=== PATIENT | female | born 1985 | race Caucasian/White ===

== ENCOUNTER → 2018-03-26 | Outpatient (CLI) | payer OTHER ==
--- NOTE | 2018-03-27 00:23 | MR ---
EXAMINATION TYPE: MR brain wo con DATE OF EXAM: 03/26/2018 COMPARISON: 04/11/1715 HISTORY: Facial Numbness and Dizzy Standard multiplanar, multisequence MRI departmental protocol Multiplanar, multisequence images of the brain were acquired. Diffusion weighted imaging was performe d. FINDINGS: The ventricles and sulci appear normal. There is no mass effect nor midline shift. There is no sign of intracranial hemorrhage. The calvarium is intact. There is some mucosal thickening in the ethmoid and frontal sinuses. Sella turcica appears normal. Brainstem appears normal. Corpus callosum appears normal. IMPRESSION: Negative MR scan of the brain. There is mild ethmoid and frontal sinusitis that is increased compared to old exam.
== END | disposition home or self-care (01) ==
LOC: RADMRIMAIN 18:34
PROVIDERS: ATTEND Family Medicine
DX: G80.9 Cerebral palsy, unspecified (principal); R20.2 Paresthesia of skin
CPT/HCPCS: 70551

== ENCOUNTER → 2018-04-10 | Outpatient (CLI) | payer OTHER ==
[2018-04-10 12:59] LABS: T4, Free (Free Thyroxine) 1.23 ng/dL (0.78-2.19)
[2018-04-10 18:53] LABS: Rheumatoid Factor 6 IU/mL (0-15)
[2018-04-10 18:59] LABS: Thyroid Peroxidase Antibodies <28.0 U/mL (0.0-60.0)
[2018-04-13 10:52] LABS: Lyme IgG/IgM 0.1 Index
== END | disposition home or self-care (01) ==
LOC: LABWHC1 12:10
PROVIDERS: ATTEND Otolaryngology
DX: R53.83 Other fatigue (principal); M19.90 Unspecified osteoarthritis, unspecified site
CPT/HCPCS: 36415; 84439; 84443; 86038; 86376; 86431; 86618

== ENCOUNTER → 2018-10-02 | Outpatient (CLI) | payer BC ==
[2018-10-02 17:09] LABS: Basophils # (A) 0.1 k/uL (0-0.2); Basophils % (A) 1 %; Eosinophils # (A) 0.5 k/uL (0-0.7); Eosinophils % (A) 6 %; HCT 41.6 % (34.0-46.0); HGB 13.6 gm/dL (11.4-16.0); Lymphocytes # (A) 1.8 k/uL (1.0-4.8); Lymphocytes % (A) 24 %; MCH 32.3 pg (25.0-35.0); MCHC 32.7 g/dL (31.0-37.0); Mean Platelet Volume 7.8; Monocytes # (A) 0.3 k/uL (0-1.0); Monocytes % (A) 4 %; Neutrophils # (A) 4.9 k/uL (1.3-7.7); Neutrophils % (A) 63 %; Platelet Count 294 k/uL (150-450); RDW 12.3 % (11.5-15.5); WBC 7.7 k/uL (3.8-10.6)
[2018-10-03 04:38] LABS: Albumin 4.7 g/dL (3.80-4.90); Albumin/Globulin Ratio 2.35 (1.20-2.10); Anion Gap 10.2 mmol/L (4.00-12.00); Carbon Dioxide 26.8 mmol/L (21.6-31.8); Potassium 3.9 mmol/L (3.5-5.5); Total Bilirubin 0.6 mg/dL (0.3-1.2); Total Protein 6.7 g/dL (6.2-8.2)
[2018-10-03 04:45] LABS: T4, Free (Free Thyroxine) 1.3 ng/dL (0.80-1.80)
== END | disposition home or self-care (01) ==
LOC: LABWHC1 16:49
PROVIDERS: ATTEND Nurse Practitioner Acute Care
DX: E55.9 Vitamin D deficiency, unspecified (principal); R53.83 Other fatigue; R42 Dizziness and giddiness; R41.3 Other amnesia
CPT/HCPCS: 36415; 80053; 82306; 82607; 84207; 84439; 84443; 84481; 85025

== ENCOUNTER → 2018-11-13 | Outpatient (CLI) | payer BC ==
[2018-11-13 15:07] VITALS: BP 124/78; PULSE 82; RESP 18; TEMP 97.4; BMI 23.6
--- NOTE | 2018-11-13 16:10 | P.HPOB ---
History of Present Illness H&P Date: 11/13/18 Chief Complaint: The patient is here for her routine gynecologic exam. This is a 33-year-old G0 within LMP of 08/10/2018. The patient is here to establish with this office. It is been more than one year since her last pelvic exam. She states she has never been sexually active. Menarche was at age 13. Menses were regular every month, but in her 20s she developed some menstrual irregularity with the menstrual periods could fluctuate by one week. She started feeling sick with her menstrual periods including nausea vomiting and diarrhea. She was seen by Dr. Becker who started her on oral contraception to see if this would help. She did to have some improvement with her symptoms. Her menses stopped on the oral contraception. Her LMP was 2017 and she went 2 months without bleeding at the end of her oral contraception pack. She discontinued oral contraception in September 2018. She has felt hot and cold. She has also been dealing with anxiety and depression during the past 3 months. She has also been under increased amounts of stress during the past 3 months when her job changed in July. She denies nipple discharge. She has had some visual changes that require her to wear glasses, but no significant peripheral vision changes. Review of Systems Patient states she has gained about 15 pounds over the last 6 months. She had lost about 70 pounds at age 28 with vigorous diet and exercise. She was able to maintain her weight up until about 6 months ago. She denies respiratory or cardiac problems. G.I.: occasional irritable bowel symptoms. Past Medical History Past Medical History: Asthma, GERD/Reflux, Osteoarthritis (OA) Additional Past Medical History / Comment(s): Peptic ulcer disease. 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 She states she has never been sexually active. Menarche was at age 13. See HPI. History of Any Multi-Drug Resistant Organisms: None Reported Past Surgical History: Orthopedic Surgery Additional Past Surgical History / Comment(s): LEFT WRIST and right hand surgery. Past Psychological History: No Psychological Hx Reported Smoking Status: Never smoker Past Alcohol Use History: None Reported Past Drug Use History: None Reported Additional History: She is single and has never been sexually active. 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 - Past Family History Mother Additional Family Medical History / Comment(s): Precancerous breast changes. Maternal grandmother had lung cancer. Father Family Medical History: Cancer (Renal cancer) Medications and Allergies Home Medications Medication Instructions Recorded Confirmed Type Calcium Carbonate [Calcium] 600 mg PO DAILY 11/13/18 11/13/18 History Cholecalciferol (Vitamin D3) 500 unit PO DAILY 11/13/18 11/13/18 History [Vitamin D3] Escitalopram [Lexapro] 10 mg PO DAILY 11/13/18 11/13/18 History Glucosamine/Chondr Simms A Sod [Osteo 2 each PO DAILY 11/13/18 11/13/18 History Bi-Flex Caplet] Meloxicam [Mobic] 15 mg PO DAILY 11/13/18 11/13/18 History Multivit with Calcium,Iron,Min 1 each PO DAILY 11/13/18 11/13/18 History [Women's Multivitamin] Pantoprazole [Protonix] 40 mg PO TID 11/13/18 11/13/18 History Sucralfate [Carafate] 1 gm PO TID 11/13/18 11/13/18 History Vit C/Ascorb Sod/Multivit-Min 500 mg PO DAILY 11/13/18 11/13/18 History [Emergen-C 500 mg Chewable Tab] Allergies Allergy/AdvReac Type Severity Reaction Status Date / Time Sulfa (Sulfonamide AdvReac Severe Rash/Hives Unverified 11/13/18 14:56 Antibiotics) Exam Vital Signs Temp Pulse Resp BP Pulse Ox 11/13/18 15:02 97.4 F L 82 18 124/78 100 Height 4'10", weight 113 pounds, BMI 23.6. This is a short statured well-nourished white female who is alert and oriented times 3 in no acute distress. HEENT: Within normal limits. NECK: Supple without mass or thyromegaly. CHEST AND LUNGS: Clear to auscultation. HEART: Regular rate and rhythm. BREASTS: Are without mass or discharge. AXILLARY EXAM: Negative for adenopathy. BACK: Negative for CVA tenderness. ABDOMEN: Soft, nontender, without palpable masses. PELVIC EXAM: Normal external genitalia. Cervix and vagina appear normal. Cervix appears nulliparous. There is no unusual discharge. There is no evidence of prolapse. The uterus is midposition, nongravid size and nontender. There are no palpable adnexal masses or tenderness. RECTAL EXAM: negative for mass or tenderness. EXTREMITIES: Nontender. IMPRESSION: 1. 33-year-old virginal female with secondary amenorrhea. Differential diagnosis will include oral contraception amenorrhea, thyroid dysfunction, premature menopause, hyperprolactinemia, stress inducing amenorrhea, and less likely, weight change associated amenorrhea and medication associated amenorrhea. 2. Normal gynecologic exam. PLAN: 1. Pap smear was performed. 2. Self breast awareness was discussed with the patient. 3. The patient will keep a menstrual calendar. 4. Lab studies will be done today including FSH, TSH, prolactin, estradiol, and hCG. 5. If the lab testing is unremarkable, we will proceed conservatively for the next few months to see if her menses start again. If they do, she will continue to keep a menstrual and symptom calendar. If she is not started menstrual flow in 3 to 4 months, she was instructed to call for an appointment and we will consider other options including progestin therapy to induce menstrual flow. 6. She will also return in one year and PRN.
[2018-11-14 02:59] LABS: HCG,Quantitative Serum <2.0 mIU/mL
== END | disposition home or self-care (01) ==
LOC: WWCWWP 14:33
PROVIDERS: ATTEND Obstetrics & Gynecology
DX: N91.1 Secondary amenorrhea (principal)
CPT/HCPCS: 36415; 82670; 83001; 84146; 84443; 84702

== ENCOUNTER → 2019-04-08 | Day surgery (SDC) | payer BC ==
[2019-04-02 14:06] VITALS: BMI 22.9
[~2019-04-08] MED LIST: IV FLUID CONTINUATION 500 ML IV ONE; SODIUM CHLORIDE 0.9% 1,000 ML IV SCH
[2019-04-08 08:17] VITALS: RESP 16; TEMP 98
[2019-04-08 10:47] VITALS: BP 117/73; PULSE 76
--- NOTE | 2019-04-08 19:33 | P.PCN ---
Preoperative Diagnosis: Diagnosis Recurrent presyncope Twelve-lead ECG Sinus rhythm normal MI narrow QRS normal ST segments with a 0.5 mm inferolateral J-point elevation No delta waves normal QT interval no epsilon waves normal ST segments in the precordial leads Tilt table test per protocol Baseline blood pressure 111/73 mmHg Baseline heart rate 70 beats a minute Patient was tilted upright at an angle of 70 per protocol at about 28 minutes into the test her heart rate is 95 beats a minute this is followed by a sudden drop in blood pressure. Lowest blood pressure recorded was 74 millimeters of mercury systolic Following that heart rate dropped to 66 beats a minute line patient was presyncopal she felt warm and nauseous When she was laid supine she felt better Impression Normal 12-lead ECG Neurocardiogenic response to upright tilting
== END ==
LOC: CATHEP 07:42
PROVIDERS: ATTEND Internal Medicine Clinical Cardiac Electrophysiology
DX: R55 Syncope and collapse (principal)
CPT/HCPCS: 81025; 93660

== ENCOUNTER → 2019-07-24 | Outpatient (CLI) | payer BC ==
--- NOTE | 2019-07-24 12:34 | FL ---
EXAMINATION TYPE: FL barium swallow w video DATE OF EXAM: 07/24/2019 MODIFIED SWALLOW / DEGLUTITION STUDY CLINICAL HISTORY: Dysphagia. TECHNIQUE: Deglutition study is performed utilizing thin liquid barium, honey and nectar thick liqui d barium, barium thick pudding, and barium coated cracker. A total of 32 seconds of fluoroscopic time utilized during procedure. 0 spot images are saved. COMPARISON: Prior upper GI study January 18, 2012. FINDINGS: The oral and pharyngeal phases show satisfactory initiation and propagation with all modali ties tested. Satisfactory mastication is seen with solid modalities tested. There is no evidence of penetration or aspiration with any modality tested. No significant pharyngeal residue was appreciate d. IMPRESSION: Normal deglutition study. Please refer to speech therapist notes for further details if necessary.
== END | disposition home or self-care (01) ==
LOC: RADFLMAIN 10:53
PROVIDERS: ATTEND Psychiatry & Neurology Neurology
DX: R13.12 Dysphagia, oropharyngeal phase (principal)
CPT/HCPCS: 74230

== ENCOUNTER → 2019-11-20 | Outpatient (CLI) | payer BC ==
--- NOTE | 2019-11-20 15:43 | CT ---
EXAMINATION TYPE: CT soft tissue neck wo con DATE OF EXAM: 11/20/2019 COMPARISON: None HISTORY: 34-year-old female Neck mass posterior neck, marked by BB TECHNIQUE: Contiguous axial scanning of the soft tissues of the neck without IV contrast. Coronal and sagittal reconstructions performed. CT DLP: 215.5 mGycm Automated exposure control for dose reduction was used. FINDINGS: Visualized intracranial structures, orbits and globes, paranasal sinuses, and mastoid air cells appea r clear. Lack of IV contrast limits assessment of the mucosal space. Allowing for this limitation, there is possible 1.1 cm soft tissue nodularity in the midline nasophar ynx that could represent prominent adenoid tissues. Punctate calcification right palatine tonsil suggests sequela of prior infection. Epiglottis and prevertebral soft tissues appear normal. Glottic and subglottic structures as well as the tracheal column and visualized upper lungs show no g ross abnormal body. Incidental variant takeoff of the left vertebral artery directly from the aortic arch. Mild heterogeneity in the right lobe of thyroid gland, possible underlying 9 mm nodule can be assesse d with thyroid ultrasound. Submandibular glands appear satisfactory. Bilateral parotid glands appear mildly atrophic. Some prominent upper cervical lymph nodes measure up to 1.0 cm. Palpable marker is present along the left posterior upper neck. There is a small 6 mm soft tissue no dule just overlying the superficial fascia just inferiorly to the marker, axial image 60 and sagittal image 45 suggestive of a small lymph node. No suspicious masses identified at the palpable site. Bones: No osseous destructive process. IMPRESSION: 1. NONCONTRAST EXAM CAUSING SOME LIMITATION IN ASSESSMENT. 2. 1.1 CM SOFT TISSUE NODULARITY IN THE MIDLINE NASOPHARYNX, LIKELY PROMINENT ADENOID TISSUES. DIRECT VISUALIZATION IF INDICATED. 3. MILD HETEROGENEITY OF THE RIGHT LOBE OF THE THYROID GLAND, POSSIBLE UNDERLYING 9 MM NODULE. DEDICA VANDANA THYROID ULTRASOUND CAN FURTHER EVALUATE. 4. PALPABLE MARKER ALONG THE LEFT POSTERIOR UPPER NECK. NO SUSPICIOUS UNDERLYING MASS. JUST BELOW THI S LEVEL, THERE IS A 6 MM SUBCUTANEOUS NODULE, LIKELY SUPERFICIAL LYMPH NODE. 5. SOME SCATTERED PROMINENT BUT NONENLARGED LYMPH NODES IN THE UPPER NECK MEASURING UP TO 1.0 CM, LIK FRANKLYN REACTIVE/POST INFLAMMATORY.
== END | disposition home or self-care (01) ==
LOC: RADCTMAIN 12:21
PROVIDERS: ATTEND Family Medicine
DX: R22.1 Localized swelling, mass and lump, neck (principal); M79.89 Other specified soft tissue disorders; E07.89 Other specified disorders of thyroid; Z88.2 Allergy status to sulfonamides
CPT/HCPCS: 70490

== ENCOUNTER → 2019-11-20 | Outpatient (CLI) | payer BC ==
[2019-11-20 11:25] VITALS: BP 127/86; PULSE 75; RESP 16; TEMP 97.8
--- NOTE | 2019-11-20 12:43 | P.HPOB ---
History of Present Illness H&P Date: 11/20/19 Chief Complaint: The patient is here for her routine gynecologic exam. This is a 34-year-old G0 with an LMP of 10/25/2019. The patient is on oral contraception for menstrual cycle regulation. She did have menstrual irregularity in her 20s and was on control pills for a number of years. She develops pill amenorrhea at the end of 2017 and discontinued the pills. She went several months without menstrual periods off of control pills. Early in 2018 she restarted the control pills. Menstrual periods have been about monthly but have varied slightly when they begin. Her menstrual periods can last between 5 and 9 days. She typically has 3 days of heavier flow followed by light bleeding. On her heavier days she typically uses 3 pads during the day. She has never been sexually active. She briefly noticed slight pelvic discomfort on the right side prior to one of her menstrual periods and she thought it might have been related to her ovary. She is otherwise without complaints and states she is doing well with the oral contraception. Review of Systems The patient has gained 11 pounds over the last year. She denies respiratory, cardiac, or G.I. problems. Past Medical History Past Medical History: Asthma, GERD/Reflux, Osteoarthritis (OA) Additional Past Medical History / Comment(s): ulcers, daily migraines, see Dr Kapadia H&P, dizziness History of Any Multi-Drug Resistant Organisms: None Reported Past Surgical History: Orthopedic Surgery Additional Past Surgical History / Comment(s): trigger finger rt index finger, metal bar placed in left wrist, mult EGD's Past Anesthesia/Blood Transfusion Reactions: Motion Sickness Past Psychological History: Depression Smoking Status: Never smoker Past Alcohol Use History: None Reported Past Drug Use History: None Reported Additional History: She is single and has never been sexually active. She works at [employer]. - Past Family History Mother Additional Family Medical History / Comment(s): Precancerous breast changes. Maternal grandmother had lung cancer. Father Family Medical History: Cancer, Deep Vein Thrombosis (DVT) Additional Family Medical History / Comment(s): kidney cancer. Medications and Allergies Home Medications Medication Instructions Recorded Confirmed Type Glucosamine/Chondr Simms A Sod [Osteo 2 each PO DAILY 11/13/18 11/20/19 History Bi-Flex Caplet] Multivit with Calcium,Iron,Min 1 each PO DAILY 11/13/18 11/20/19 History [Women's Multivitamin] Sucralfate [Carafate] 1 gm PO TID 11/13/18 11/20/19 History Albuterol Inhaler [Ventolin Hfa 2 puff INHALATION DIRECTED PRN 04/02/19 11/20/19 History Inhaler] Ascorbic Acid [Vitamin C] 1,000 mg PO DAILY 11/20/19 11/20/19 History Cholecalciferol [Vitamin D3 (25 10,000 unit PO DAILY 11/20/19 11/20/19 History Mcg = 1000 Iu)] Folic Acid 1 mg PO DAILY 11/20/19 11/20/19 History Methotrexate Sodium [Methotrexate] 7 mg PO WEEKLY 11/20/19 11/20/19 History Tri Femynor 1 tab PO DAILY 11/20/19 11/20/19 History Allergies Allergy/AdvReac Type Severity Reaction Status Date / Time Sulfa (Sulfonamide AdvReac Severe Rash/Hives Unverified 11/20/19 11:16 Antibiotics) Exam Vital Signs Temp Pulse Resp BP Pulse Ox 11/20/19 11:21 97.8 F 75 16 127/86 100 Intake and Output 11/19/19 11/20/19 11/20/19 22:59 06:59 14:59 Other: Weight 56.245 kg Height 4 feet 10 inches, weight 124 pounds, BMI 25.9. This is a well-developed well-nourished white female who is alert and oriented times 3 in no acute distress. HEENT: Within normal limits. NECK: Supple without mass or thyromegaly. CHEST AND LUNGS: Clear to auscultation. HEART: Regular rate and rhythm. BREASTS: Are without mass or discharge. AXILLARY EXAM: Negative for adenopathy. BACK: Negative for CVA tenderness. ABDOMEN: Soft, nontender, without palpable masses. PELVIC EXAM: Normal external genitalia. Cervix and vagina appear normal. There is no unusual discharge. There is no evidence of prolapse. The uterus is deviated to the right and is approximately 8-10 week size and nontender. There are no palpable adnexal masses or tenderness. RECTAL EXAM: Deferred. EXTREMITIES: Nontender. IMPRESSION: 1. 34-year-old virginal female doing well on oral contraception for cycle regulation. 2. Mildly enlarged uterus which seems deviated to the right. Differential diagnosis will include uterine fibroids, adnexal mass, or deviated uterus. PLAN: 1. Pap smear was deferred since she had a negative one on 11/13/2018. 2. Self breast awareness was discussed with the patient. 3. She will continue Tri-Sprintec at this time. If growing uterine fibroids are found, we may consider discontinuing oral contraception. The electronic prescription will be sent to [facility] pharmacy on [facility]. 4. Pelvic ultrasound was recommended and the patient will schedule this. 5. The patient will continue to keep a menstrual calendar. 6. She was advised to return in one year for her annual well woman exam and as needed.
== END | disposition home or self-care (01) ==
LOC: WWCWWP 11:08
PROVIDERS: ATTEND Obstetrics & Gynecology
DX: Z53.9 Procedure and treatment not carried out, unspecified reason (principal)

== ENCOUNTER → 2019-11-26 | Outpatient (CLI) | payer BC ==
--- NOTE | 2019-11-27 09:03 | US ---
EXAMINATION TYPE: US pelvic complete DATE OF EXAM: 11/26/2019 COMPARISON: NONE CLINICAL HISTORY: N85.2 uterine enlargement on physical exam TECHNIQUE: . Transabdominal sonographic images of the pelvis were acquired. Date of LMP: 3 weeks ago EXAM MEASUREMENTS: Uterus: 7.7 x 3.3 x 4.5 cm Endometrial Stripe: 1.2 cm Right Ovary: 3.0 x 2.3 x 2.4 cm Left Ovary: 3.6 x 2.9 x 3.4 cm 1. Uterus: Anteverted wnl 2. Endometrium: wnl 3. Right Ovary: Cyst visualized measuring 2.2 x 1.8 x 1.9 cm 4. Left Ovary: Cyst visualized measuring 3.0 x 2.6 x 2.6 cm 5. Bilateral Adnexa: wnl 6. Posterior cul-de-sac: Tiny amount of free fluid visualized IMPRESSION: Bilateral ovarian cysts. Correlate for appropriate phase of patient's follicular cycle fo r endometrial stripe thickness. Minimal free fluid noted in the cul-de-sac.
--- NOTE | 2019-11-27 13:37 | P.PN ---
Progress Note - Text Progress Note Date: 11/27/19 OUTPATIENT FOLLOW-UP NOTE TEST(S)/RESULTS: Pelvic ultrasound done on 11/26/2019 shows a uterus which is anteverted and within normal limits. Bilateral adnexa were within normal limits with bilateral ovarian cysts noted. The cyst measured approximate 2.2 cm on the right and 3.0 cm on the left. METHOD OF NOTIFICATION: The patient was notified by phone. PATIENT COMMENTS: DIAGNOSIS: Bilateral ovarian cysts. No uterine abnormality is noted. DISCUSSION: PLAN: The patient was instructed to call she's having any unusual symptoms such as pelvic discomfort or pressure. She was advised to return in one year for her annual well woman exam.
== END | disposition home or self-care (01) ==
LOC: RADUSMAIN 15:54
PROVIDERS: ATTEND Obstetrics & Gynecology
DX: N83.201 Unspecified ovarian cyst, right side (principal); N83.202 Unspecified ovarian cyst, left side
CPT/HCPCS: 76856

== ENCOUNTER → 2019-12-04 | Outpatient (CLI) | payer BC ==
--- NOTE | 2019-12-05 08:06 | US ---
EXAMINATION TYPE: US thyroid st tissue head/neck DATE OF EXAM: 12/04/2019 COMPARISON: NONE CLINICAL HISTORY: R22.0 swelling. difficulty swallowing, swelling GLAND SIZE: Right Lobe: 5.2 x 1.6 x 1.9 cm Overall Parenchyma: homogenous Left Lobe: 4.6 x 1.1 x 1.4 cm Overall Parenchyma: homogeneous Isthmus Thickness: 0.2 cm NODULES RIGHT: # of nodules measured on right: 1 1. 0.9 X 0.5 x 0.8 cm isoechoic solid nodule at the upper pole with poorly defined margins; . This nodule is wider than tall and shows intranodular vascularity. Prior size: no prior LEFT: # of nodules measured on left: 0 ISTHMUS: # of nodules measured in the isthmus: 0 Bilateral neck scanned, normal appearing lymph nodes left neck IMPRESSION: Solitary subcentimeter right thyroid nodule, too small for fine-needle aspiration at this time. Surveillance ultrasound of the thyroid is recommended in 12 months to establish stability.
== END | disposition home or self-care (01) ==
LOC: RADUSWWP 16:48
PROVIDERS: ATTEND Family Medicine
DX: E04.1 Nontoxic single thyroid nodule (principal)
CPT/HCPCS: 76536

== ENCOUNTER → 2020-04-21 | Outpatient (CLI) | payer BC ==
--- NOTE | 2020-04-21 13:13 | CT ---
EXAMINATION TYPE: CT soft tissue neck w con DATE OF EXAM: 04/21/2020 COMPARISON: 11/20/2019 HISTORY: 34-year-old female E04.1 thyroid nodule, abnormal Ultrasound TECHNIQUE: Contiguous axial scanning of the soft tissues of the neck performed with IV Contrast, charmaine ent injected with 100 mL of Isovue 300. Coronal, sagittal reconstructions performed. CT DLP: 309.9 mGycm Automated exposure control for dose reduction was used. FINDINGS: Visualized intracranial structures, orbits and globes, paranasal sinuses, and mastoid air cells appea r clear. Redemonstrated 9 mm nodularity along the left paramedian posterior nasopharynx, axial image 67, possi ble prominent adenoid tissues. Some calcifications in the region of the right palatine tonsil suggests sequela of prior infection. Epiglottis and prevertebral soft tissues within normal limits. Minimal hypertrophy of the lingual ton sils. Gliotic and subglottic structures as well as the tracheal column and visualized upper lungs appear cl ear. There is direct takeoff of the left vertebral artery directly from the aortic arch. Suspected small 7 mm nodule within the right thyroid gland. Diminutive glands are satisfactory. Mild atrophy of the bilateral parotid glands. No cervical lymphadenopathy identified. At the site of previous left posterior upper neck palpable ma rker, there is similar underlying probable subcutaneous lymph node measuring 5 mm, not significantly changed from prior. No cervical lymphadenopathy seen. No osseous destructive process. IMPRESSION: 1. SIMILAR 9 MM NODULARITY ALONG THE LEFT PARAMEDIAN POSTERIOR NASOPHARYNX THAT MAY CORRESPOND TO CHILANGO E PROMINENT ADENOID TISSUES. 2. STABLE, PROBABLE 5 MM SUBCUTANEOUS LYMPH NODE ALONG THE LEFT POSTERIOR UPPER NECK AT THE SITE OF P REVIOUS PALPABLE MARKER. NO SUSPICIOUS CERVICAL ADENOPATHY. 3. BY CONTRAST ENHANCED CT OF THE NECK, THE RIGHT THYROID NODULE IS ESTIMATED AT 7 MM RATHER THAN THE 9 MM MEASURED ON THE ULTRASOUND OF 10/11/2020. CONTINUED ULTRASOUND FOLLOW-UP RECOMMENDED.
== END | disposition home or self-care (01) ==
LOC: RADCTMAIN 11:14
PROVIDERS: ATTEND Family Medicine
DX: E04.1 Nontoxic single thyroid nodule (principal)
CPT/HCPCS: 70491; Q9967

== ENCOUNTER → 2020-08-31 | Outpatient (CLI) | payer BC ==
--- NOTE | 2020-08-31 16:04 | XR ---
Right hip HISTORY: Pain 2 views the right hip Bone mineralization, joint spaces and alignment are maintained. No fracture or dislocation. IMPRESSION: Normal right hip.
== END | disposition home or self-care (01) ==
LOC: RADXRMAIN 15:19
PROVIDERS: ATTEND Family Medicine
DX: M25.551 Pain in right hip (principal); M79.89 Other specified soft tissue disorders
CPT/HCPCS: 73502

== ENCOUNTER → 2020-11-24 | Outpatient (CLI) | payer BC ==
[2020-11-24 16:20] VITALS: BP 136/90; PULSE 76; RESP 16; TEMP 98.5
--- NOTE | 2020-11-24 17:28 | P.HPOB ---
History of Present Illness H&P Date: 11/24/20 Chief Complaint: The patient is here for her routine gynecologic exam. This is a 35-year-old G0 with an LMP of 10/26/2020. The patient has been on oral contraception since 2019. She had been on control pills from about age 21 until age 31. She started having pill amenorrhea and had a trial off of the control pills. After going several months without menstrual periods she was restarted on the control pills in 2019. With the control pills, menses have been fairly regular, however her periods started coming earlier in the pack during the past summer. Now they seem to be starting at the end of each pack. She states she has never been sexually active and has been on the control pills solely for menstrual cycle regulation. She has been experiencing occasional and can also feels somewhat warm during the day. She has had some difficulty sleeping at night. Review of Systems The patient's weight has been stable over the last year. She denies respiratory, cardiac, or G.I. problems. Past Medical History Past Medical History: Asthma, GERD/Reflux, Osteoarthritis (OA) Additional Past Medical History / Comment(s): ulcers, daily migraines, d izziness. 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 Possible endometriosis in the past. History of Any Multi-Drug Resistant Organisms: None Reported Past Surgical History: Orthopedic Surgery Additional Past Surgical History / Comment(s): trigger finger rt index finger, metal bar placed in left wrist, mult EGD's Past Anesthesia/Blood Transfusion Reactions: Motion Sickness Past Psychological History: Depression Smoking Status: Never smoker Past Alcohol Use History: None Reported Past Drug Use History: None Reported Additional History: She is single and has never been sexually active. She works at [employer] selling [employer]. - Past Family History Mother Additional Family Medical History / Comment(s): Precancerous breast changes. Maternal grandmother had lung cancer. Father Family Medical History: Cancer, Deep Vein Thrombosis (DVT) Additional Family Medical History / Comment(s): kidney cancer. Medications and Allergies Home Medications Medication Instructions Recorded Confirmed Type Sucralfate [Carafate] 1 gm PO TID 11/13/18 11/24/20 History Albuterol Inhaler (Mhu) [Ventolin 2 puff INHALATION DIRECTED PRN 04/02/19 11/24/20 History Hfa Inhaler] Ascorbic Acid [Vitamin C] 1,000 mg PO DAILY 11/20/19 11/24/20 History Cholecalciferol [Vitamin D3 (25 10,000 unit PO DAILY 11/20/19 11/24/20 History Mcg = 1000 Iu)] Folic Acid 1 mg PO DAILY 11/20/19 11/24/20 History Calcium Carbonate [Calcium] 600 mg PO DAILY 11/24/20 11/24/20 History Hydroxychloroquine Sulfate 200 mg PO DAILY 11/24/20 11/24/20 History Magnesium 200 mg PO DAILY 11/24/20 11/24/20 History Meloxicam 15 mg PO DAILY 11/24/20 11/24/20 History Montelukast Sodium [Singulair] 10 mg PO HS 11/24/20 11/24/20 History Norgestimate-Ethinyl Estradiol 1 each PO DAILY 11/24/20 11/24/20 History [Tri-Estarylla Tablet] Pantoprazole Sodium [Protonix] 20 mg PO DAILY 11/24/20 11/24/20 History Vitamin B Complex 1 each PO DAILY 11/24/20 11/24/20 History Zinc 50 mg PO DAILY 11/24/20 11/24/20 History Allergies Allergy/AdvReac Type Severity Reaction Status Date / Time Sulfa (Sulfonamide AdvReac Severe Rash/Hives Unverified 11/24/20 16:07 Antibiotics) Exam Vital Signs Temp Pulse Resp BP Pulse Ox 11/24/20 16:15 98.5 F 76 16 136/90 97 Intake and Output 11/24/20 11/24/20 11/24/20 06:59 14:59 22:59 Other: Weight 56.245 kg Height 4 feet 10 inches, weight 124 pounds, BMI 25.9. This is a well-developed well-nourished white female who is alert and oriented times 3 in no acute distress. HEENT: Within normal limits. NECK: Supple without mass or thyromegaly. CHEST AND LUNGS: Clear to auscultation. HEART: Regular rate and rhythm. BREASTS: Are without mass or discharge. AXILLARY EXAM: Negative for adenopathy. BACK: Negative for CVA tenderness. ABDOMEN: Soft, nontender, without palpable masses. PELVIC EXAM: Normal external genitalia. Cervix and vagina appear normal. There is no unusual discharge. There is no evidence of prolapse. The uterus is midposition and slightly deviated to the right and this is consistent with her previous examination. The uterus is nongravid size and nontender. There are no palpable adnexal masses or tenderness. RECTAL EXAM: Negative for mass or tenderness. EXTREMITIES: Nontender. IMPRESSION: 1. 35-year-old female on oral contraception for cycle regulation with slight uterine deviation which is unchanged from her previous examination. This is been previously checked with a pelvic ultrasound which did not show any significant findings. 2. Mild blood pressure elevation. 3. Virginal female. PLAN: 1. Pap smear cotest was performed. 2. Self breast awareness was discussed with the patient. 3. We have had a long discussion regarding oral contraception. Because her blood pressure is slightly high, we will have a trial off of control pills. She states she will check her blood pressure on a regular basis since she has access to a blood pressure cuff. She will call or follow up with her PCP if blood pressures are consistently high. She will discontinue her co ntrol pills after her present pack is completed. She will keep a menstrual calendar and call if menstrual problems. 4. Osteoporosis prevention was discussed. I have stressed the importance of adequate calcium, vitamin D and regular exercise. Recommended amounts of calcium and vitamin D were also discussed. 5. She was advised to return in one year for her annual well woman exam and as needed.
== END | disposition home or self-care (01) ==
LOC: WWCWWP 15:54
PROVIDERS: ATTEND Obstetrics & Gynecology
DX: Z53.9 Procedure and treatment not carried out, unspecified reason (principal)

== ENCOUNTER 2022-06-12 19:06 | Emergency (ER) | payer BC, OTHER ==
[2022-06-12 19:42] VITALS: BP 140/99; PULSE 84; RESP 16; TEMP 97.8
[2022-06-12] MEDS ORDERED: FLUORESCEIN STRIPS 1 MG STRIP BOTH EYES STA (20:20)
[2022-06-12] MEDS ORDERED: dexAMETHasone 2 MG TAB PO STA (20:21)
[2022-06-12 23:10] LABS: Basophils % (A) 1 %; Eosinophils # (A) 0.3 k/uL (0-0.7); Eosinophils % (A) 8 %; HCT 41.9 % (34.0-46.0); Lymphocytes # (A) 0.7 k/uL (1.0-4.8); Lymphocytes % (A) 17 %; MCH 32.7 pg (25.0-35.0); MCHC 33.5 g/dL (31.0-37.0); MCV 97.5 fL (80.0-100.0); Mean Platelet Volume 8.6; Monocytes # (A) 0.3 k/uL (0-1.0); Monocytes % (A) 7 %; Neutrophils # (A) 2.7 k/uL (1.3-7.7); Neutrophils % (A) 65 %; Platelet Count 219 k/uL (150-450); RDW 12.8 % (11.5-15.5); WBC 4.2 k/uL (3.8-10.6)
[2022-06-12 23:24] LABS: INR 0.9 (<1.2); Partial Thromboplastin Time 29.7 sec (22.0-30.0)
[2022-06-12 23:35] LABS: African American GFR (CKD) >90 (>60 ml/min/1.73 sqM); Anion Gap 10 mmol/L; Blood Urea Nitrogen 14 mg/dL (7-17); Calcium 8.6 mg/dL (8.4-10.2); Carbon Dioxide 24 mmol/L (22-30); Chloride 103 mmol/L (98-107); Glucose 94 mg/dL (74-99); Non-African American GFR(CKD) >90 (>60 ml/min/1.73 sqM); Potassium 3.8 mmol/L (3.5-5.1); Sodium 137 mmol/L (137-145)
--- NOTE | 2022-06-13 00:04 | ED ---
General Adult HPI - General Chief complaint: Eye Problems Stated complaint: COVID+ Time Seen by Provider: 06/12/22 19:47 Source: patient, RN notes reviewed Mode of arrival: ambulatory Limitations: no limitations - History of Present Illness Initial comments: 37-year-old female presents to the emergency department for evaluation of multiple complaints including scratchy throat, facial rash, and visual disturbance to bilateral eyes. Patient states her symptoms began today. Reports positive home Covid test. Did not take any medications prior to arrival to treat her symptoms. Patient localizes the rash on her face to extending from the outer canthus of bilateral eyes and also has an itching discomfort sensation in her ears. Describes her visual disturbance as and "oil and water" appearance, though has no change in her ability to see. Denies fever, headache, chest pain, difficulty breathing, abdominal pain, diarrhea, or dysuria. - Related Data Home Medications Medication Instructions Recorded Confirmed Sucralfate [Carafate] 1 gm PO TID 11/13/18 11/24/20 Albuterol Inhaler [Ventolin Hfa 2 puff INHALATION DIRECTED PRN 04/02/19 11/24/20 Inhaler] Ascorbic Acid [Vitamin C] 1,000 mg PO DAILY 11/20/19 11/24/20 Cholecalciferol [Vitamin D3 (25 10,000 unit PO DAILY 11/20/19 11/24/20 Mcg = 1000 Iu)] Folic Acid 1 mg PO DAILY 11/20/19 11/24/20 Calcium Carbonate [Calcium] 600 mg PO DAILY 11/24/20 11/24/20 Hydroxychloroquine Sulfate 200 mg PO DAILY 11/24/20 11/24/20 Magnesium 200 mg PO DAILY 11/24/20 11/24/20 Meloxicam 15 mg PO DAILY 11/24/20 11/24/20 Montelukast Sodium [Singulair] 10 mg PO HS 11/24/20 11/24/20 Pantoprazole Sodium [Protonix] 20 mg PO DAILY 11/24/20 11/24/20 Vitamin B Complex 1 each PO DAILY 11/24/20 11/24/20 Zinc 50 mg PO DAILY 11/24/20 11/24/20 norgestimate-ethinyl estradioL 1 each PO DAILY 11/24/20 11/24/20 [Tri-Estarylla Tablet] Previous Rx's Medication Instructions Recorded dexAMETHasone [Decadron] 6 mg PO DAILY #9 tablet 06/13/22 Allergies Allergy/AdvReac Type Severity Reaction Status Date / Time Sulfa (Sulfonamide AdvReac Severe Rash/Hives Verified 06/12/22 19:38 Antibiotics) Review of Systems ROS Statement: Those systems with pertinent positive or pertinent negative responses have been documented in the HPI. ROS Other: All systems not noted in ROS Statement are negative. Past Medical History Past Medical History: Asthma, GERD/Reflux, Osteoarthritis (OA) Additional Past Medical History / Comment(s): ulcers, daily migraines, dizziness. 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 Possible endometriosis in the past. History of Any Multi-Drug Resistant Organisms: None Reported Past Surgical History: Orthopedic Surgery Additional Past Surgical History / Comment(s): trigger finger rt index finger, metal bar placed in left wrist, mult EGD's Past Anesthesia/Blood Transfusion Reactions: Motion Sickness Past Psychological History: Depression Smoking Status: Never smoker Past Alcohol Use History: None Reported Past Drug Use History: None Reported - Past Family History Mother Additional Family Medical History / Comment(s): Precancerous breast changes. Maternal grandmother had lung cancer. Father Family Medical History: Cancer, Deep Vein Thrombosis (DVT) Additional Family Medical History / Comment(s): kidney cancer. General Exam Limitations: no limitations (Well-developed, well-nourished female in no acute distress. Initial temperature 97.8, pulse 84, respirations 16, blood pressure 140/99, pulse ox 98% on room air.) General appearance: alert, in no apparent distress Eye exam: Present: normal appearance, PERRL, EOMI. Absent: scleral icterus, conjunctival injection, periorbital swelling Expanded Eyelids: Normal Inspection: Bilateral Pupils: Regular, Round: Bilateral Sclera/Conjunctival: Normal Inspection: Bilateral Anterior chamber: Normal Inspection: Bilateral Visual acuity (R) = 20/: 20 Visual acuity (L) = 20/: 20 With correction: No IOP (R) in mmH IOP (L) in mmH IOP measured with: [employer] ENT exam: Present: normal exam, normal oropharynx, mucous membranes moist, TM's normal bilaterally, other (complains of mild itching discomfort in bilateral ear canals- no erythema or lesions noted) Neck exam: Present: normal inspection, full ROM. Absent: lymphadenopathy Respiratory exam: Present: normal lung sounds bilaterally, other (dry non-prod uctive cough). Absent: respiratory distress, wheezes, rales, rhonchi, stridor, chest wall tenderness Cardiovascular Exam: Present: regular rate, normal rhythm, normal heart sounds. Absent: systolic murmur, diastolic murmur, rubs, gallop, clicks GI/Abdominal exam: Present: soft, normal bowel sounds. Absent: distended, tenderness, guarding, rebound, rigid Neurological exam: Present: alert, oriented X3, CN II-XII intact Psychiatric exam: Present: normal affect, normal mood Skin exam: Present: warm, dry, intact, urticaria (complains of mild itching discomfort extending from outer corner of bilateral eyes toward ears. Small pink, dry areas noted; no lesions or vesicles) Course Vital Signs 06/12/22 19:38 Temperature 97.8 F Pulse Rate 84 Respiratory 16 Rate Blood Pressure 140/99 O2 Sat by Pulse 98 Oximetry Medical Decision Making - Medical Decision Making This is a 37-year-old female who presents to the emergency department for multiple complaints after testing positive for Covid today. Upon exam, patient is well-appearing and in no acute distress. Her vision is intact despite having a sense of "oil and water" quality to it. Also has small areas of pink, dry patches near bilateral eyes. Ear canals are patent with no evidence of erythema or lesions. Tympanic membranes are intact. Oropharynx is non-erythematous and nonedematous. No shortness of breath or difficulty breathing. Dry cough noted. Given patient's possible rash on her face, positive Covid test, and sensation of swelling in the oral pharynx she will be prescribed Decadron and was given her first dose while present in the emergency department. Strict return parameters were discussed in detail. Patient verbalizes understanding and agrees with this plan. Encouraged to follow up with PCP for telephone or video visit in 48 hours. Attending: Lu. - Lab Data Result diagrams: 06/12/22 22:57 06/12/22 22:57 Lab Results 06/12/22 06/12/22 06/12/22 Range/Units 22:57 22:57 22:57 WBC 4.2 (3.8-10.6) k/uL RBC 4.30 (3.80-5.40) m/uL Hgb 14.0 (11.4-16.0) gm/dL Hct 41.9 (34.0-46.0) % MCV 97.5 (80.0-100.0) fL MCH 32.7 (25.0-35.0) pg MCHC 33.5 (31.0-37.0) g/dL RDW 12.8 (11.5-15.5) % Plt Count 219 (150-450) k/uL MPV 8.6 Neutrophils % 65 % Lymphocytes % 17 % Monocytes % 7 % Eosinophils % 8 % Basophils % 1 % Neutrophils # 2.7 (1.3-7.7) k/uL Lymphocytes # 0.7 L (1.0-4.8) k/uL Monocytes # 0.3 (0-1.0) k/uL Eosinophils # 0.3 (0-0.7) k/uL Basophils # 0.0 (0-0.2) k/uL PT 10.0 (9.0-12.0) sec INR 0.9 (<1.2) APTT 29.7 (22.0-30.0) sec D-Dimer 0.56 (<0.60) mg/L FEU Sodium 137 (137-145) mmol/L Potassium 3.8 (3.5-5.1) mmol/L Chloride 103 (98-107) mmol/L Carbon Dioxide 24 (22-30) mmol/L Anion Gap 10 mmol/L BUN 14 (7-17) mg/dL Creatinine 0.75 (0.52-1.04) mg/dL Est GFR (CKD-EPI)AfAm >90 (>60 ml/min/1.73 sqM) Est GFR (CKD-EPI)NonAf >90 (>60 ml/min/1.73 sqM) Glucose 94 (74-99) mg/dL Calcium 8.6 (8.4-10.2) mg/dL Disposition Clinical Impression: Subjective visual disturbance, bilateral, Rash, History of COVID-19 Disposition: HOME SELF-CARE Condition: Stable Instructions (If sedation given, give patient instructions): Coronavirus Dis ease 2019 (COVID-19) Additional Instructions: Maintain quarantine precautions for 5 days from symptoms onset. Then wear a mask when out in public for the subsequent 5 days. Take Decadron as prescribed. Avoid consuming excess sugar. Follow-up with eye doctor if visual disturbances persist. Return to the emergency department with any new, worsening, or concerning symptoms. Prescriptions: dexAMETHasone [Decadron] 6 mg PO DAILY #9 tablet Is patient prescribed a controlled substance at d/c from ED?: No Referrals: Fuad Mark DO [Primary Care Provider] - 1-2 days Gopi Tucker MD [STAFF PHYSICIAN] - 1-2 days Marcus Lopez DO [Doctor of Osteopathic Medicine] - 1-2 days Time of Disposition: 00:04
== END 2022-06-13 00:36 | disposition home or self-care (01) ==
LOC: EC 19:06
DX: H53.10 Unspecified subjective visual disturbances (principal); R21 Rash and other nonspecific skin eruption; J45.909 Unspecified asthma, uncomplicated; K21.9 Gastro-esophageal reflux disease without esophagitis; Z86.16 Personal history of COVID-19; Z88.2 Allergy status to sulfonamides; Z79.899 Other long term (current) drug therapy
CPT/HCPCS: 36415; 85379; 80048; 85025; 85610; 85730; 99283; J8540